=== PATIENT | female | born 1995 | race Asian ===

== ENCOUNTER 2018-10-06 03:46 | Emergency (ER) | payer OTHER ==
[~2018-10-06] VITALS: Ht 160 cm; Wt 54.4 kg
[2018-10-06 03:57] VITALS: BP_SYST 116
[2018-10-06] MEDS ORDERED: KETOROLAC TROMETHAMINE 30 MG VIAL IM ONE (05:15)
[2018-10-06] MEDS ORDERED: KETOROLAC TROMETHAMINE 30 MG VIAL ONE (05:21)
[2018-10-06] MEDS ORDERED: IBUPROFEN 600 MG TABLET PO ONE (05:30)
[2018-10-06 05:50] VITALS: BP_SYST 118
== END 2018-10-06 05:50 | disposition home or self-care (01) ==
LOC: SED 03:46
DX: S20.212A Contusion of left front wall of thorax, initial encounter (principal); X58.XXXA Exposure to other specified factors, initial encounter; Y93.23 Activity, snow (alpine) (downhill) skiing, snowboarding, sledding, tobogganing and snow tubing; Y92.89 Other specified places as the place of occurrence of the external cause; Y99.8 Other external cause status
CPT/HCPCS: 71100; 81025; 99283; J1885

== ENCOUNTER 2019-06-02 08:24 | Emergency (ER) | payer MEDICAID, OTHER ==
[~2019-06-02] VITALS: Ht 160 cm; Wt 54.4 kg
[2019-06-02 08:30] VITALS: BP_SYST 116
--- NOTE | 2019-06-02 08:36 | NUR ---
Patient to ER bed 8 to gown for evaluation. Side rails up. Report given to YAMILKA MORRELL.
--- NOTE | 2019-06-02 08:50 | NUR ---
Patient arrived via POV, AAOx4, and ambulatory with steady gait. Patient c/c of constipation x 7 days. States she came home from a trip to [place] on 05/26/19 and has not had a BM since. Patient states she can feel stool in her rectum and is scared to tear something. Patient states abdominal tenderness. Will continue to follow up and monitor.
--- NOTE | 2019-06-02 08:53 | NUR ---
ER at bedside examining patient.
[2019-06-02] MEDS ORDERED: GLYCERIN 1 SUPP.RECT (ADULT) RC ONE (09:00)
[2019-06-02] MEDS ORDERED: NACL 0.9% 1,000 ML IV ONE (09:00)
[2019-06-02] MEDS ORDERED: MAGNESIUM CITRATE 300 ML ORAL SOLUTION PO ONE (09:00)
[2019-06-02] MEDS ORDERED: NA PHOS,M-B/NA PHOS,DI-BA 118 ML (FLEET ENEMA) RC ONE (09:00)
--- NOTE | 2019-06-02 09:00 | NUR ---
# 20 gauge angiocath placed to RAC. Use of asceptic technique. Opsite placed over site. Blood return noted. Blood for lab drawn from site. Flushed with 10 cc of normal saline. No evidence of infiltration noted. Patient tolerated well.
[2019-06-02 09:18] LABS: BASOPHILS % (AUTO) 0.5 % (0.0-2.0); EOSINOPHILS % (AUTO) 0.3 % (0.0-4.0); HEMATOCRIT 43.1 % (36-48); HEMOGLOBIN 14.4 g/dL (12.0-16.0); LYMPHOCYTES # (AUTO) 1.3 K/uL (1.0-5.5); LYMPHOCYTES % (AUTO) 15.6 % (20.5-51.5); MEAN CORPUSCULAR HEMOGLOBIN 31 pg (27-31); MEAN CORPUSCULAR HGB CONC 34 % (32-36); MEAN CORPUSCULAR VOLUME 91 fL (79.0-98.0); MONOCYTES # (AUTO) 0.5 K/uL (0.0-1.0); MONOCYTES % (AUTO) 6.3 % (1.7-9.3); NEUTROPHILS # (AUTO) 6.3 K/uL (1.8-7.7); NEUTROPHILS % (AUTO) 77.3 % (40.0-70.0); PLATELET COUNT (AUTO) 300 K/uL (130-430); RED BLOOD CELL COUNT(AUTO) 4.73 MIL/uL (4.2-6.2); WHITE BLOOD COUNT (AUTO) 8.1 K/uL (4.8-10.8)
[2019-06-02 09:21] LABS: CALCIUM 9.1 mg/dL (8.4-11.0); CREATININE 0.76 mg/dL (0.55-1.30); POTASSIUM 3.7 mmol/L (3.5-5.1)
[2019-06-02 09:26] LABS: ALBUMIN 4.1 g/dL (3.4-4.8); TOTAL BILIRUBIN 1.1 mg/dL (0.0-1.0)
--- NOTE | 2019-06-02 09:40 | NUR ---
Patient had very large BM passed in the restroom, states she feels much better after. Patient states immediate decreased abdominal pain.
[2019-06-02 10:50] VITALS: BP_SYST 120
--- NOTE | 2019-06-02 11:50 | NUR ---
Patient given written and verbal discharge instructions and verbalizes understanding. ER MD discussed with patient the results and treatment provided. Patient in stable condition. ID arm band removed. IV catheter removed intact and dressing applied, no active bleeding. Rx of Colace and Fleet Enema given. Patient educated on pain management and to follow up with PMD. Pain Scale 0/10. Opportunity for questions provided and answered. Medication side effect fact sheet provided.
== END 2019-06-02 10:50 | disposition home or self-care (01) ==
LOC: SED 08:24
DX: K59.00 Constipation, unspecified (principal)
CPT/HCPCS: 36415; 74021; 80053; 84436; 84479; 84703; 85025; 99284; J7030